=== PATIENT | female | born 2000 | race Caucasian/White ===

== ENCOUNTER 2022-11-17 14:50 | Outpatient (OUT) | payer BC, MEDICAID, SELFPAY ==
--- NOTE | 2022-11-17 15:20 | XR_ITS ---
[address] [address] Patient Name: CHRISTIAN LEON MRN: [id number] date: 2000 Sex: F Assigned Patient Location: [facility] Current Patient Location: Accession/Order Number: [id number] Exam Date: 11/17/2022 15:20 Report Date: 11/18/2022 06:20 At the request of: XIANG BUSTILLO Procedure: XR foot ECTOR min 3V EXAMINATION: XR foot ECTOR min 3V, XR ankle ECTOR min 3V HISTORY: BILATERAL FOOT PAIN COMPARISON: No relevant comparison available. FINDINGS: RIGHT FINDINGS: BONES: No acute fracture or dislocation. Mild flattening the plantar arch with plantar rotation of the navicular in relation to the distal tarsals. SOFT TISSUES: Negative. No visible soft tissue swelling. OTHER: Negative. LEFT FINDINGS: BONES: No acute fracture or dislocation. Mild flattening the plantar arch with plantar rotation of the navicular in relation to the distal tarsals. SOFT TISSUES: Negative. No visible soft tissue swelling. OTHER: Negative. XR/XR foot ECTOR min 3V IMPRESSION: RIGHT CONCLUSION: No acute abnormality LEFT CONCLUSION: No acute abnormality Electronically authenticated by: DYLAN PAYAN Date: 11/18/2022 06:20
--- NOTE | 2022-11-17 15:22 | XR_ITS ---
[address] [address] Patient Name: CHRISTIAN LEON MRN: [id number] date: 2000 Sex: F Assigned Patient Location: [facility] Current Patient Location: Accession/Order Number: [id number] Exam Date: 11/17/2022 15:21 Report Date: 11/18/2022 06:20 At the request of: XIANG BUSTILLO Procedure: XR ankle ECTOR min 3V EXAMINATION: XR foot ECTOR min 3V, XR ankle ECTOR min 3V HISTORY: BILATERAL FOOT PAIN COMPARISON: No relevant comparison available. FINDINGS: RIGHT FINDINGS: BONES: No acute fracture or dislocation. Mild flattening the plantar arch with plantar rotation of the navicular in relation to the distal tarsals. SOFT TISSUES: Negative. No visible soft tissue swelling. OTHER: Negative. LEFT FINDINGS: BONES: No acute fracture or dislocation. Mild flattening the plantar arch with plantar rotation of the navicular in relation to the distal tarsals. SOFT TISSUES: Negative. No visible soft tissue swelling. OTHER: Negative. XR/XR ankle ECTOR min 3V IMPRESSION: RIGHT CONCLUSION: No acute abnormality LEFT CONCLUSION: No acute abnormality Electronically authenticated by: DYLAN PAYAN Date: 11/18/2022 06:20
== END 2022-11-17 14:51 | disposition home or self-care (01) ==
LOC: RAD 14:51
PROVIDERS: Visit Provider Podiatrist Foot & Ankle Surgery
DX: M25.572 Pain in left ankle and joints of left foot (principal); M25.571 Pain in right ankle and joints of right foot
CPT/HCPCS: 73610; 73630